=== PATIENT | male | born 1955 | race Caucasian/White ===

== ENCOUNTER 2018-10-16 14:43 | Outpatient (CLI) | payer OTHER | END 2018-10-16 14:53 | disposition home or self-care (01) | LOC: LAB 14:43 | DX: R97.20 Elevated prostate specific antigen [PSA] (principal) ==

== ENCOUNTER 2024-07-10 09:35 | Outpatient (CLI) | payer OTHER | END 2024-07-10 10:16 | disposition home or self-care (01) | LOC: SONOGRAMA 09:35 | PROVIDERS: ATTEND Internal Medicine Hematology & Oncology | DX: N40.0 Benign prostatic hyperplasia without lower urinary tract symptoms (principal); C61 Malignant neoplasm of prostate ==